=== PATIENT | female | born 1940 | race Caucasian/White ===

== ENCOUNTER 2024-10-19 14:18 | Emergency (ER) | payer MEDICARE, MEDICAID, SELFPAY ==
[2024-10-19 14:20] VITALS: BP 174/65; PULSE 65; RESP 20; TEMP 35.9; O2SAT 92; BMI 36.7
--- NOTE | 2024-10-19 14:48 | ED.VIS.FALL ---
HPI HPI - Fall History of Present Illness Chief Complaint: Fall Informant: patient Occured/Mechanism Occurred: Today Fall down steps #: 1 Pain/Injury Pain Location: head, face and upper extremity (Left wrist and left hand) Quality of Pain: Aching Worsened by: Nothing Relieved by: Nothing Associated Symptoms Associated Symptoms: Negative for Parasthesias, Weakness, Loss of function, Inability to ambulate or Loss of consciousness Narrative Narrative: Patient presents after a fall that occurred today. Patient states she was coming down a flight of stairs and missed the last step. Patient states she fell forward and hit her head on the leg of a table. Patient denies any loss of consciousness. Patient denies any paresthesias or weakness. Patient also complains of pain over her ulnar aspect of her left wrist and the left fifth finger. The patient describes her pain as aching. Patient states her last tetanus was approximately 10 years ago. Patient denies any visual changes. Patient denies any nausea or vomiting. [facility] Medical History (Updated 10/19/24 @ 16:[address] Michael Steiner DO) Pacemaker Migraine Hypercholesteremia Hypertension Allergy/AdvReac Type Severity Reaction Status Date / Time No Known Allergies Allergy Verified 10/19/24 14:22 Surgical History Hx of appendectomy H/O: hysterectomy Social History Smoking Status: Never smoker ROS ROS ED Constitutional Constitutional ED: Denies chills or fever(s) Eyes Eyes: Denies blurry vision or change in vision ENT ENT ED: Denies rhinorrhea or sore throat Cardiovascular Cardiovascular: Denies chest pain or palpitations Respiratory/Chest Respiratory/Chest: Denies cough or dyspnea Gastrointestinal Gastrointestinal: Denies nausea or vomiting Genitourinary Genitourinary ED: Denies dysuria or hematuria Musculoskeletal Musculoskeletal: Reports back pain; Denies neck pain Integumentary Denies abscess or rash Neurologic Neurologic: Reports headache(s); Denies weakness Allergic/Immunologic Allergic/Immunologic ED: Denies mouth swelling or urticaria EXAM Physical Exam Const Vital Signs: 10/19/24 14:20 10/19/24 16:19 Temperature 96.7 F L Temperature Source Temporal Pulse Rate 65 71 Respiratory Rate 20 H 18 Blood Pressure 174/65 H 179/70 H Blood Pressure Mean 101 106 Pulse Ox 92 94 Oxygen Delivery Method Room Air Room Air Positive well nourished and well developed General Appearance ED: well developed and NAD HEENT HEENT Narrative: There is a hematoma over the left forehead. There is an abrasion across the bridge of the nose. There is no septal deviation or septal hematoma. There is no bony crepitance or step-off noted. There is no epistaxis noted. Neck full ROM and supple Resp normal respiratory effort and clear to auscultation bilaterally Cardio regular rate and regular rhythm GI non-tender and non-distended Palpation: soft Extremity Extremity Narrative: There is mild tenderness and edema over the ulnar aspect of the left wrist and left fifth finger. There is no obvious deformity. There is good range of motion of the left hand and left wrist. Neuro oriented x3, CN's II-XII intact bilaterally, moves all extremities, no focal motor deficits and no sensory deficits noted Brenda Coma Scale: document GCS findings Spontaneous Obeys Commands Oriented 15 Sensorium / Orientation: alert Motor Exam: strength 5/5 throughout Psych mental status grossly normal and thought process normal Skin Skin Narrative: There is a superficial abrasion over the bridge of the nose. There is no active bleeding noted. There is no surrounding erythema or warmth. There is no bony crepitance or step-off. MDM MDM MDM Narrative Medical decision making narrative: Differential diagnosis includes intracranial bleeding, hematoma, contusion, nasal fracture, and abrasion. CT scan of the brain will be obtained to assess for intracranial bleeding and nasal fracture. Radiography Diagnostic Testing: Clinical Impression(s) from Imaging Studies Brain CT 10/19/24 15:04 IMPRESSION: There is no underlying fracture. Soft tissue swelling of the midline forehead. Chronic involutional changes of the brain. Electronically Signed: Anjum Thao MD at 15:55 EST , CT scan of the brain was obtained. There is no acute intracranial abnormality. There are chronic involutional changes noted. There is soft tissue swelling of the forehead. There is no acute fracture. This was interpreted by the radiologist and was also independently reviewed by myself. Treatment and Re-Evaluation Narrative: Patient was given a tetanus booster. Patient was advised of her findings. Patient was instructed use ice to the area. Patient was instructed to take Tylenol or ibuprofen as needed for pain. Patient was instructed to follow-up with her primary care physician in 5 to 7 days. Patient understood and was agreeable with the plan. All questions were answered. Discharge Plan Triage Chief Complaint: Fall ED Provider: Michael Steiner Dx/Rx/DC Orders Clinical Impression: Closed head injury, Forehead contusion, Fall Instructions: ED Head Injury (Adult) Primary Care Provider: AMARIS YIP MD Referrals: AMARIS YIP MD [Other] - 5-7 Days NOT,DEFINED [Non-Staff] - Print Language: Thai Disposition Disposition: Home, Self Care
--- NOTE | 2024-10-19 15:04 | CT_ITS ---
STUDY: CT BRAIN WITHOUT CONTRAST REASON FOR EXAM: Female, 84 years old. Injury/Pain Individualized dose optimization techniques were used for this CT. TECHNIQUE: Transaxial CT imaging of the brain was performed without administration of intravenous contrast material. COMPARISON: None FINDINGS: There are calcifications around the carotid artery. These are noted in the cavernous carotid arteries. Normal calvarium. There is no underlying fracture. Soft tissue swelling of the midline forehead. There is mild cerebral atrophy with widening of the extra-axial spaces and ventricular dilatation. There are areas of decreased attenuation within the white matter tracts of the supratentorial brain, consistent with microvascular disease changes. Normal basal ganglia and thalami. Normal brainstem. There is mild cerebellar atrophy. There is no intracranial hemorrhage. There are no findings of an acute ischemic infarction. There is sinus disease. ASPECTS Score for Acute Strokes: 08/21 CT/Brain/Head without Contrast IMPRESSION: There is no underlying fracture. Soft tissue swelling of the midline forehead. Chronic involutional changes of the brain. Electronically Signed: Anjum Thao MD at 15:55 EST ,
[2024-10-19] MEDS: Diphth,Pertuss(Acell),Tet Vac 0.5 ML Vial IM (15:33)
[2024-10-19 16:19] VITALS: BP 179/70; PULSE 71; RESP 18; O2SAT 94
[2024-10-19 16:22] VITALS: BP 179/70; PULSE 71; RESP 15; TEMP 36.6; O2SAT 94
== END 2024-10-19 16:40 | disposition home or self-care (01) ==
PROVIDERS: Emergency Provider Emergency Medicine; Visit Provider Emergency Medicine
DX: S00.83XA Contusion of other part of head, initial encounter (principal); E78.00 Pure hypercholesterolemia, unspecified; W10.9XXA Fall (on) (from) unspecified stairs and steps, initial encounter; Z90.710 Acquired absence of both cervix and uterus; I10 Essential (primary) hypertension; S09.90XA Unspecified injury of head, initial encounter; Z95.0 Presence of cardiac pacemaker; Z79.899 Other long term (current) drug therapy; Z90.49 Acquired absence of other specified parts of digestive tract; Z23 Encounter for immunization
CPT/HCPCS: 70450; 90715; 99282